=== PATIENT | male | born 2000 | race Hispanic/Latino ===

== ENCOUNTER 2019-04-19 16:05 | Emergency (ER) | payer SELFPAY ==
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
[2019-04-19 19:03] LABS: Potassium 4.2 mmol/L (3.5-5.1)
[2019-04-19 20:37] VITALS: TEMP 98; O2SAT 100
[2019-04-19 20:38] VITALS: BP 141/80
== END 2019-04-19 19:58 | disposition home or self-care (01) ==
LOC: ER 16:05
DX: S05.12XA Contusion of eyeball and orbital tissues, left eye, initial encounter (principal); W50.0XXA Accidental hit or strike by another person, initial encounter; Y93.67 Activity, basketball; Y92.310 Basketball court as the place of occurrence of the external cause
CPT/HCPCS: 36415; 70487; 76377; 80048; 99284; Q9967

== ENCOUNTER 2021-05-18 10:11 | Emergency (ER) | payer OTHER, SELFPAY ==
[2021-05-18 11:05] LABS: Absolute Lymphocytes (CBC) 3.2 K/uL (0.7-4.9); Basophils % 0.9 % (0-1.3); Hematocrit 42.4 % (39.6-49.0); Lymphocytes % 37.1 % (15.3-44.8); MPV 8.7 fL (7.6-11.3); RBC Red Blood Cell Count 4.99 M/uL (4.33-5.43)
[2021-05-18 11:15] LABS: BUN Blood Urea Nitrogen 12 mg/dL (7-18); Bicarbonate 26 mmol/L (21-32); Glucose Level 98 mg/dL (74-106); Sodium Level 141 mmol/L (136-145)
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
[2021-05-18] MEDS ORDERED: CYCLOBENZAPRINE 10 MG TAB ONE (11:48)
[2021-05-18] MEDS ORDERED: KETOROLAC 30 MG/ML INJ ONE (11:49)
[2021-05-18] MEDS ORDERED: HYDROCODONE/APAP 10/325 TAB ONE (11:49)
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
[2021-05-18 12:16] VITALS: BP 138/80; TEMP 97.8; O2SAT 100
== END 2021-05-18 12:10 | disposition home or self-care (01) ==
LOC: ER 10:11
DX: S16.1XXA Strain of muscle, fascia and tendon at neck level, initial encounter (principal); S39.012A Strain of muscle, fascia and tendon of lower back, initial encounter; S40.021A Contusion of right upper arm, initial encounter; V49.40XA Driver injured in collision with unspecified motor vehicles in traffic accident, initial encounter
CPT/HCPCS: 85025; 80048; 36415; 82565; 70450; 72125; 71260; 74177; 96374; 99284; Q9967